=== PATIENT | male | born 1995 ===

== ENCOUNTER 2017-05-20 15:30 | Emergency (ER) | payer OTHER ==
[2017-05-20 15:48] VITALS: BP 164/92; PULSE 58; RESP 20; TEMP 98.5; O2SAT 100
[2017-05-20] MEDS ORDERED: Bacitracin 500 Units/gm Oint Foilpak UD TOP ONE (16:33)
[2017-05-20] MEDS ORDERED: Acetaminophen-Codeine 300/30 mg Tab PO STA (16:34)
[2017-05-20] MEDS ORDERED: Bacitracin 500 Units/gm Oint Foilpak UD ONE (16:45)
[2017-05-20] MEDS ORDERED: Oxycodone/Acetaminophen 5/325 mg Tab ONE (16:45)
--- NOTE | 2017-05-20 17:07 | C.PDOC ---
History Of Present Illness 22 y/o male with chronic rash to lower extremities for last few months, just finished bactrim, has appt dermatology in next day or so, presents to ED with worsening pain to lower extemities, left more than right. Time Seen by Provider: 05/20/17 15:58 Chief Complaint (Nursing): Abnormal Skin Integrity History Per: Patient History/Exam Limitations: no limitations Onset/Duration Of Symptoms: Days (severa; momth) Location Of Injury: Right: Foot, Leg, Left: Foot, Leg Quality Of Symptoms: Painful Severity: Moderate Past Medical History Reviewed: Historical Data, Nursing Documentation, Vital Signs Vital Signs: Last Vital Signs Temp 98.5 F 05/20/17 15:44 Pulse 58 L 05/20/17 15:44 Resp 20 05/20/17 15:44 BP 164/92 H 05/20/17 15:44 Pulse Ox 100 05/22/17 17:26 - Medical History PMH: No Chronic Diseases Family History: States: Unknown Family Hx - Social History Hx Alcohol Use: No Hx Substance Use: No - Immunization History Hx Tetanus Toxoid Vaccination: No Hx Influenza Vaccination: Yes Hx Pneumococcal Vaccination: No Review Of Systems Constitutional: Negative for: Fever, Chills Musculoskeletal: Positive for: Foot Pain (bilateral) Skin: Positive for: Rash Neurological: Negative for: Weakness, Numbness Physical Exam - Physical Exam Appears: Non-toxic, No Acute Distress Skin: Normal Color, Warm, Rash (bilateral lower extremities from mid young distal to feet with multiple areas of excoriations, scabs and irregularly shaped open ulcerated skin along lateral metatarsals and lateral malleoli, no erythema or warmth, no drainage. ) Pulses: Left Dorsalis Pedis: Normal, Right Dorsalis Pedis: Normal Neurological/Psych: Oriented x3, Normal Speech, Normal Cognition ED Course And Treatment O2 Sat by Pulse Oximetry: 100 Medical Decision Making Medical Decision Making: pt with chronic rash to lower ext, has appt with derm for 05/22, just finished bactrim and keflex a few days ago. c/o worse pain to left lower ext. pt takes meloxicam. no fever. Disposition Counseled Patient/Family Regarding: Diagnosis, Need For Followup, Rx Given - Disposition Referrals: Estrella Poe APN [Advanced Practice Nurse] - Disposition: HOME/ ROUTINE Disposition Time: 17:06 Condition: GOOD Additional Instructions: Keep skin clean and dry; keep wounds covered. Continue to take meloxicam for pain. Take Tylenol #3 for severe pain. Follow up with your neurosurgery spine physician and primary care doctor on as already scheduled. Prescriptions: Acetaminophen with Codeine [Tylenol with Codeine #3 Tablet] 1 each PO Q6 #10 tablet Forms: General Discharge Instructions, [facility] (Libyan) - Clinical Impression Clinical Impression: Skin lesion
== END 2017-05-20 17:18 | disposition home or self-care (01) ==
LOC: C.ER 15:30
DX: L98.9 Disorder of the skin and subcutaneous tissue, unspecified (principal)

== ENCOUNTER 2017-05-24 14:32 | Emergency (ER) | payer OTHER ==
[2017-05-24 14:47] VITALS: TEMP 98.2; O2SAT 97
[2017-05-24] MEDS ORDERED: Bacitracin 500 Units/gm Oint Foilpak UD TOP ONE ×2 (15:44→15:50)
[2017-05-24] MEDS ORDERED: Bacitracin 500 Units/gm Oint Foilpak UD ONE ×2 (15:54→15:55)
[2017-05-24] MEDS ORDERED: Oxycodone/Acetaminophen 5/325 mg Tab PO STA (16:01)
[2017-05-24] MEDS ORDERED: Oxycodone/Acetaminophen 5/325 mg Tab ONE (16:17)
--- NOTE | 2017-05-24 16:56 | C.PDOC ---
History Of Present Illness 22-year-old male, presents to the emergency department with complaints of one- year duration of rash to bilateral legs. Patient states he has been treated by interceptor operator, and given Bactrim two weeks ago which he finished. States he comes in today because he is experiencing pain. Denies trauma, numbness/weakness , fever or drainage. Time Seen by Provider: 05/24/17 14:47 Chief Complaint (Nursing): Lower Extremity Problem/Injury History Per: Patient History/Exam Limitations: no limitations Current Symptoms Are (Timing): Still Present Past Medical History Reviewed: Historical Data, Nursing Documentation, Vital Signs Vital Signs: Last Vital Signs Temp 98.2 F 05/24/17 14:45 Pulse 76 05/24/17 17:05 Resp 20 05/24/17 17:05 BP 144/83 05/24/17 17:05 Pulse Ox 97 05/24/17 21:04 - Medical History PMH: No Chronic Diseases Family History: States: No Known Family Hx - Social History Hx Alcohol Use: No Hx Substance Use: No - Immunization History Hx Tetanus Toxoid Vaccination: No Hx Influenza Vaccination: Yes (02/2017) Hx Pneumococcal Vaccination: No Review Of Systems Except As Marked, All Systems Reviewed And Found Negative. Physical Exam - Physical Exam Appears: Non-toxic, No Acute Distress Skin: Warm, Rash ((+) healing open wounds to the bilateral legs and feet with tenderness. No drainage, erythema or swelling. No fluctuance or induration. ) Head: Atraumatic, Normacephalic Eye(s): bilateral: Normal Inspection, PERRL, EOMI ED Course And Treatment O2 Sat by Pulse Oximetry: 97 (RA) Pulse Ox Interpretation: Normal Progress Note: The patient was evaluated by Dr. Edwards at bedside and agrees that this is chronic and needs to follow up with Derm for biopsy and would not benefit from admission into the hospital. There is no fever, erythema, warm, swelling or any other signs of cellulitis in the legs at this time. The case was discussed with the patient's dermatoloigist Jada Mchugh and they state that the legs were cultures and was negative. They state they the patient has a follow up appointment next week for biopsy and will see the patient then. Disposition - Disposition Referrals: [facility] [Outside] Disposition: HOME/ ROUTINE Disposition Time: 16:54 Condition: FAIR Additional Instructions: Follow up with the medical doctor within 1-2 days. return if worsened. Prescriptions: oxyCODONE/Acetaminophen [Percocet 5/325 mg Tab] 1 tab PO QID PRN #10 tab PRN Reason: severe pain Instructions: Skin Rash Forms: [facility] (Ivorian) - Clinical Impression Clinical Impression: Skin rash - Scribe Statement The provider has reviewed the documentation as recorded by the Scribe (Devika Munoz) All medical record entries made by the Scribe were at my direction and personally dictated by me. I have reviewed the chart and agree that the record accurately reflects my personal performance of the history, physical exam, medical decision making, and the department course for this patient. I have also personally directed, reviewed, and agree with the discharge instructions and disposition.
[2017-05-24 17:08] VITALS: BP 144/83; PULSE 76; RESP 20
== END 2017-05-24 17:11 | disposition home or self-care (01) ==
LOC: C.ER 14:32
DX: R21 Rash and other nonspecific skin eruption (principal)